=== PATIENT | male | born 1940 | race Caucasian/White ===

== ENCOUNTER 2017-08-15 09:03 | Inpatient (IN) ==
[2017-08-15] MEDS ORDERED: SODIUM CHLORIDE 0.9% 500 ML IV STA ×2 (09:41→09:43)
[2017-08-15] MEDS ORDERED: LEVOFLOXACIN INJ 500 MG in PREMIX 1 EACH IV STA (09:41)
[2017-08-15] MEDS ORDERED: methylPREDNISolone SOD SUC 125 MG/2 ML VIAL IV STA (09:41)
[2017-08-15] MEDS ORDERED: methylPREDNISolone SOD SUC 125 MG/2 ML VIAL ONE (09:50)
[2017-08-15] MEDS ORDERED: LEVOFLOXACIN INJ 100 ML IV ONE (09:50)
[2017-08-15 09:51] LABS: Basophils # 0.1 10*3/uL (0.0-0.2); Basophils % 0.4 % (0.0-0.8); Eosinophils % 0.1 % (0.00-10.9); Hemoglobin 14.8 GM/DL (14.0-18.0); Immature Granulocytes % 1.8 %; Immature Granulocytes Absolute 0.46 #; Lymphocytes # 1.8 10*3/uL (1.4-4.0); Lymphocytes % 7.1 % (21.2-54.2); Mean Corpuscular HGB Conc 33.6 GM/DL (32-36); Mean Corpuscular Hemoglobin 30 PG (27-34); Mean Corpuscular Volume 87.8 FL (87-102); Mean Platelet Volume 9.6 FL (9.6-12.0); Monocytes # 0.8 10*3/uL (0.11-0.8); Monocytes % 3.3 % (1.7-12.7); NRBC # 0.05 10*3/uL; Neutrophils # 22.1 10*3/uL (1.4-7.4); Neutrophils % 87.3 % (38.7-73.9); Platelet Count 322 T/CUMM (130-400); Red Blood Count 5.01 MC/CUMM (3.8-5.5); Red Cell Distribution Width 15.2 % (9.3-17.3); White Blood Count 25.3 T/CUMM (4-12)
[2017-08-15 09:56] LABS: PT Patient Result 10.8 SECS; Partial Thromboplastin Time 23.7 SECS (0-40)
[2017-08-15] MEDS ORDERED: ALBUTEROL 2.5 MG/3 ML NEB RESP TX SCH (10:00)
[2017-08-15 10:04] LABS: Albumin 2.9 G/DL (3.4-5.0); Bilirubin,Total 0.5 MG/DL (0.2-1.0); Calcium 9.7 MG/DL (8.5-10.1); Potassium 3.7 MMOL/L (3.5-5.1); Total Protein 5.8 G/DL (6.4-8.3); Troponin I Only 0.172 NG/ML (0.00-0.045)
[2017-08-15] MEDS ORDERED: FUROSEMIDE 40 MG/4 ML VIAL IV STA (10:23)
[2017-08-15] MEDS ORDERED: NOREPINEPHRINE 4 MG/4 ML VIAL IV ONE (10:33)
[2017-08-15 10:40] LABS: ABG HCO3 27.3 MMOL/L (20-26); ABG PCO2 40.1 MM HG (35-48); ABG PH 7.454 (7.35-7.45); ABG TCO2 24.3 MMOL/L (23-27)
[2017-08-15 10:43] LABS: ABG PO2 38.8 MM HG (80-95)
[2017-08-15] MEDS: NOREPINEPHRINE 8 MG in SODIUM CHLORIDE 0.9% 242 ML IV SCH (10:45)
[2017-08-15 10:52] LABS: Apearance,Urine CLOUDY (Clear); Bacteria,Urine Many /HPF (Few); Bilirubin,Urine Negative (Negative); Blood, Urine Moderate mg/dL (Negative); Glucose,Urine (UA) >=500 mg/dL (Negative); Ketones,Urine Negative (Negative); Mucus,Urine Occasional /LPF (Occasional); Nitrite,Urine Negative (Negative); Protein,Urine Negative; RBC,Urine 6 /HPF (0-4); Urine Color Yellow (Yellow); Urine Specific Gravity 1.017 (1.001-1.035); WBC,Urine 66 /HPF (0-6)
[2017-08-15] MEDS ORDERED: FUROSEMIDE 40 MG/4 ML VIAL ONE (11:14)
[2017-08-15 11:19] LABS: Band Neutrophils 9 % (0-10); Giant Platelets Few; Hypochromasia 1+; Lymphocytes 6 % (20-55); Microcytosis Slight; Platelet Estimate Adequate; Segmented Neutrophils 83 % (50-85); Total Cells Counted 100
[2017-08-15] MEDS ORDERED: SODIUM CHLORIDE 0.9% 1,000 ML IV ONE (11:34)
[2017-08-15] MEDS ORDERED: SODIUM CHLORIDE 0.9% 1,000 ML IV SCH (12:30)
[2017-08-15] MEDS ORDERED: ONDANSETRON 4 MG/2 ML VIAL IV PRN (14:29)
[2017-08-15] MEDS ORDERED: ACETAMINOPHEN 325 MG TABLET PO PRN (14:29)
[2017-08-15] MEDS ORDERED: VANCOMYCIN INJ 1,250 MG in SODIUM CHLORIDE 0.45% 250 ML IV SCH (15:30)
[2017-08-15] MEDS: cefTRIAXone 1,000 MG in SYRINGE 1 EACH IV SCH (15:30)
[2017-08-15] MEDS: methylPREDNISolone SOD SUC 40 MG/1 ML VIAL IV SCH ×2 (15:31→22:33)
[2017-08-15] MEDS: ALBUTEROL/IPRATROPIUM 3 ML NEB RESP TX SCH ×2 (15:59→20:14)
[2017-08-16] MEDS ORDERED: MORPHINE 2 MG/1 ML SYRINGE ONE (00:37)
[2017-08-16] MEDS: MORPHINE 2 MG/1 ML SYRINGE IV PRN ×2 (00:43→11:15)
[2017-08-16] MEDS: ALBUTEROL/IPRATROPIUM 3 ML NEB RESP TX SCH ×4 (01:06→19:54)
[2017-08-16 05:38] LABS: Basophils % 0.1 % (0.0-0.8); Hematocrit 36.4 VOL% (42.0-52.0); Hemoglobin 12.2 GM/DL (14.0-18.0); Immature Granulocytes % 0.7 %; Immature Granulocytes Absolute 0.14 #; Lymphocytes # 0.4 10*3/uL (1.4-4.0); Lymphocytes % 1.8 % (21.2-54.2); Mean Corpuscular HGB Conc 33.5 GM/DL (32-36); Mean Corpuscular Hemoglobin 29 PG (27-34); Mean Corpuscular Volume 86.9 FL (87-102); Mean Platelet Volume 9.6 FL (9.6-12.0); Monocytes # 0.4 10*3/uL (0.11-0.8); Neutrophils # 19.1 10*3/uL (1.4-7.4); Neutrophils % 95.4 % (38.7-73.9); Platelet Count 174 T/CUMM (130-400); Red Blood Count 4.19 MC/CUMM (3.8-5.5); Red Cell Distribution Width 15.2 % (9.3-17.3)
[2017-08-16 06:15] LABS: Calcium 9.2 MG/DL (8.5-10.1); Osmolality,Calculated 294.8 MOS/KG (273-304); Potassium 4.8 MMOL/L (3.5-5.1)
[2017-08-16] MEDS: methylPREDNISolone SOD SUC 40 MG/1 ML VIAL IV SCH ×3 (06:32→23:41)
[2017-08-16] MEDS ORDERED: GLUCAGON 1 MG VIAL IM PRN (07:11)
[2017-08-16] MEDS ORDERED: DEXTROSE 50% 25 GM/50 ML VIAL IV PRN (07:11)
[2017-08-16 08:28] LABS: Band Neutrophils 1 % (0-10); Hypochromasia 2+; Lymphocytes 4 % (20-55); Microcytosis 1+; Platelet Estimate Adequate; Segmented Neutrophils 94 % (50-85); Total Cells Counted 100
[2017-08-16] MEDS: FUROSEMIDE 40 MG/4 ML VIAL IV SCH ×2 (08:30→16:22)
[2017-08-16] MEDS ORDERED: FUROSEMIDE 40 MG/4 ML VIAL IV SCH (09:00)
[2017-08-16] MEDS: NOREPINEPHRINE 8 MG in SODIUM CHLORIDE 0.9% 242 ML IV SCH (10:22)
[2017-08-16] MEDS: cefTRIAXone 1,000 MG in SYRINGE 1 EACH IV SCH (12:15)
[2017-08-16] MEDS: INSULIN REGULAR 100 UNIT/ML SUBCUT SCH ×3 (12:35→23:54)
[2017-08-16] MEDS: CLINDAMYCIN INJ 600 MG in PREMIX 1 EACH IV SCH ×2 (16:20→23:40)
[2017-08-16] MEDS: PIPERACILLIN/TAZOBACTAM 3,375 MG in SODIUM CHLORIDE 0.9% 100 ML IV SCH (16:50)
[2017-08-16] MEDS: DILTIAZEM INJ 100 MG in SODIUM CHLORIDE 0.9% 100 ML IV SCH (21:41)
[2017-08-17] MEDS: ALBUTEROL/IPRATROPIUM 3 ML NEB RESP TX SCH ×4 (00:49→19:51)
[2017-08-17] MEDS: PIPERACILLIN/TAZOBACTAM 3,375 MG in SODIUM CHLORIDE 0.9% 100 ML IV SCH ×4 (01:04→23:49)
[2017-08-17 06:19] LABS: Calcium 7.9 MG/DL (8.5-10.1); Magnesium 2.3 MG/DL (1.8-2.4); Osmolality,Calculated 304.1 MOS/KG (273-304); Potassium 3.6 MMOL/L (3.5-5.1)
[2017-08-17] MEDS: INSULIN REGULAR 100 UNIT/ML SUBCUT SCH ×4 (06:30→23:57)
[2017-08-17] MEDS: CLINDAMYCIN INJ 600 MG in PREMIX 1 EACH IV SCH ×3 (06:31→23:03)
[2017-08-17] MEDS: methylPREDNISolone SOD SUC 40 MG/1 ML VIAL IV SCH ×3 (06:31→23:03)
[2017-08-17] MEDS: FUROSEMIDE 40 MG/4 ML VIAL IV SCH ×2 (08:19→16:22)
[2017-08-17] MEDS: ALBUTEROL 2.5 MG/3 ML NEB RESP TX PRN ×2 (11:22→16:11)
[2017-08-17] MEDS: INSULIN GLARGINE 100 UNIT/ML SUBCUT SCH (16:49)
[2017-08-17] MEDS: NOREPINEPHRINE 8 MG in SODIUM CHLORIDE 0.9% 242 ML IV SCH (19:45)
[2017-08-17] MEDS: DILTIAZEM INJ 100 MG in SODIUM CHLORIDE 0.9% 100 ML IV SCH (22:37)
[2017-08-18] MEDS: ALBUTEROL/IPRATROPIUM 3 ML NEB RESP TX SCH ×4 (01:31→19:57)
[2017-08-18] MEDS: INSULIN REGULAR 100 UNIT/ML SUBCUT SCH ×3 (06:48→17:12)
[2017-08-18] MEDS: methylPREDNISolone SOD SUC 40 MG/1 ML VIAL IV SCH ×2 (06:48→14:38)
[2017-08-18] MEDS: CLINDAMYCIN INJ 600 MG in PREMIX 1 EACH IV SCH ×2 (06:48→14:41)
[2017-08-18] MEDS: FUROSEMIDE 40 MG/4 ML VIAL IV SCH ×2 (08:40→15:15)
[2017-08-18] MEDS: PIPERACILLIN/TAZOBACTAM 3,375 MG in SODIUM CHLORIDE 0.9% 100 ML IV SCH ×2 (08:40→15:22)
[2017-08-18] MEDS: INSULIN GLARGINE 100 UNIT/ML SUBCUT SCH (08:40)
[2017-08-18] MEDS: DILTIAZEM INJ 100 MG in SODIUM CHLORIDE 0.9% 100 ML IV SCH ×3 (08:41→21:32)
[2017-08-18] MEDS: NOREPINEPHRINE 8 MG in SODIUM CHLORIDE 0.9% 242 ML IV SCH (09:41)
[2017-08-19] MEDS: methylPREDNISolone SOD SUC 40 MG/1 ML VIAL IV SCH ×4 (00:01→23:19)
[2017-08-19] MEDS: CLINDAMYCIN INJ 600 MG in PREMIX 1 EACH IV SCH ×4 (00:02→23:19)
[2017-08-19] MEDS: PIPERACILLIN/TAZOBACTAM 3,375 MG in SODIUM CHLORIDE 0.9% 100 ML IV SCH ×4 (00:09→23:52)
[2017-08-19] MEDS: INSULIN REGULAR 100 UNIT/ML SUBCUT SCH ×4 (00:36→17:53)
[2017-08-19] MEDS: ALBUTEROL/IPRATROPIUM 3 ML NEB RESP TX SCH ×4 (00:44→20:27)
[2017-08-19] MEDS: DILTIAZEM INJ 100 MG in SODIUM CHLORIDE 0.9% 100 ML IV SCH ×2 (03:52→21:12)
[2017-08-19] MEDS: INSULIN GLARGINE 100 UNIT/ML SUBCUT SCH (08:43)
[2017-08-19] MEDS: FUROSEMIDE 40 MG/4 ML VIAL IV SCH ×2 (08:43→16:54)
[2017-08-19] MEDS: NOREPINEPHRINE 8 MG in SODIUM CHLORIDE 0.9% 242 ML IV SCH (10:14)
[2017-08-19] MEDS: CHOLECALCIFEROL 1,000 UNIT TABLET PO SCH (12:09)
[2017-08-19] MEDS: DIGOXIN 0.125 MG TABLET PO SCH (12:10)
[2017-08-19] MEDS: APIXABAN 5 MG TABLET PO SCH ×2 (12:10→20:50)
[2017-08-19] MEDS: THEOPHYLLINE ER (24 HR) 300 MG CAPSULE PO SCH (12:10)
[2017-08-19] MEDS: PANTOPRAZOLE 40 MG TABLET PO SCH (12:10)
[2017-08-19] MEDS: FINASTERIDE 5 MG TABLET PO SCH (12:11)
[2017-08-19] MEDS: TAMSULOSIN 0.4 MG CAPSULE PO SCH (20:51)
[2017-08-19] MEDS: clonazePAM 0.5 MG TABLET PO SCH (20:51)
[2017-08-20] MEDS: INSULIN REGULAR 100 UNIT/ML SUBCUT SCH ×4 (00:07→18:33)
[2017-08-20] MEDS: ALBUTEROL/IPRATROPIUM 3 ML NEB RESP TX SCH ×4 (01:18→20:37)
[2017-08-20 04:13] LABS: Basophils % 0.2 % (0.0-0.8); Immature Granulocytes % 0.8 %; Immature Granulocytes Absolute 0.07 #; Lymphocytes # 0.3 10*3/uL (1.4-4.0); Lymphocytes % 2.8 % (21.2-54.2); Mean Corpuscular HGB Conc 31.6 GM/DL (32-36); Mean Corpuscular Hemoglobin 29 PG (27-34); Mean Corpuscular Volume 92.7 FL (87-102); Mean Platelet Volume 9.9 FL (9.6-12.0); Monocytes # 0.5 10*3/uL (0.11-0.8); Monocytes % 4.9 % (1.7-12.7); Neutrophils # 8.4 10*3/uL (1.4-7.4); Neutrophils % 91.3 % (38.7-73.9); Platelet Count 148 T/CUMM (130-400); Red Cell Distribution Width 14.6 % (9.3-17.3); White Blood Count 9.2 T/CUMM (4-12)
[2017-08-20 04:46] LABS: Calcium 8.5 MG/DL (8.5-10.1); Magnesium 2.9 MG/DL (1.8-2.4); Osmolality,Calculated 318.7 MOS/KG (273-304); Potassium 3.1 MMOL/L (3.5-5.1)
[2017-08-20 04:51] LABS: Lymphocytes 1 % (20-55); Segmented Neutrophils 96 % (50-85); Total Cells Counted 100
[2017-08-20 04:52] LABS: Platelet Estimate Adequate; Polychromasia Slight
[2017-08-20] MEDS: methylPREDNISolone SOD SUC 40 MG/1 ML VIAL IV SCH ×3 (07:35→23:02)
[2017-08-20] MEDS: CLINDAMYCIN INJ 600 MG in PREMIX 1 EACH IV SCH ×3 (07:35→23:02)
[2017-08-20] MEDS: FUROSEMIDE 40 MG/4 ML VIAL IV SCH (09:32)
[2017-08-20] MEDS: PIPERACILLIN/TAZOBACTAM 3,375 MG in SODIUM CHLORIDE 0.9% 100 ML IV SCH ×3 (09:36→23:31)
[2017-08-20] MEDS: INSULIN GLARGINE 100 UNIT/ML SUBCUT SCH (09:36)
[2017-08-20] MEDS: APIXABAN 5 MG TABLET PO SCH ×2 (09:37→20:37)
[2017-08-20] MEDS: DIGOXIN 0.125 MG TABLET PO SCH (09:37)
[2017-08-20] MEDS: THEOPHYLLINE ER (24 HR) 300 MG CAPSULE PO SCH (09:37)
[2017-08-20] MEDS: CHOLECALCIFEROL 1,000 UNIT TABLET PO SCH (09:37)
[2017-08-20] MEDS: PANTOPRAZOLE 40 MG TABLET PO SCH (09:37)
[2017-08-20] MEDS: FINASTERIDE 5 MG TABLET PO SCH (09:37)
[2017-08-20] MEDS: NOREPINEPHRINE 8 MG in SODIUM CHLORIDE 0.9% 242 ML IV SCH (09:38)
[2017-08-20] MEDS: TAMSULOSIN 0.4 MG CAPSULE PO SCH ×2 (09:38→20:37)
[2017-08-20] MEDS: sitaGLIPtin 100 MG TABLET PO SCH (09:38)
[2017-08-20] MEDS: clonazePAM 0.5 MG TABLET PO SCH ×2 (09:38→20:37)
[2017-08-20] MEDS: POTASSIUM CHLORIDE 20 MEQ TABLET PO SCH ×3 (15:54→23:02)
[2017-08-20] MEDS: DILTIAZEM INJ 100 MG in SODIUM CHLORIDE 0.9% 100 ML IV SCH ×2 (15:55→20:39)
[2017-08-21] MEDS: ALBUTEROL/IPRATROPIUM 3 ML NEB RESP TX SCH ×5 (00:24→23:55)
[2017-08-21] MEDS: INSULIN REGULAR 100 UNIT/ML SUBCUT SCH ×4 (01:21→17:47)
[2017-08-21] MEDS: POTASSIUM CHLORIDE 20 MEQ TABLET PO SCH (03:11)
[2017-08-21 04:35] LABS: Calcium 8.5 MG/DL (8.5-10.1); Magnesium 2.8 MG/DL (1.8-2.4); Osmolality,Calculated 319.3 MOS/KG (273-304); Potassium 3.7 MMOL/L (3.5-5.1)
[2017-08-21 04:50] LABS: Troponin I Only 0.107 NG/ML (0.00-0.045)
[2017-08-21] MEDS: DILTIAZEM INJ 100 MG in SODIUM CHLORIDE 0.9% 100 ML IV SCH ×3 (05:21→22:56)
[2017-08-21] MEDS: methylPREDNISolone SOD SUC 40 MG/1 ML VIAL IV SCH ×3 (07:31→23:56)
[2017-08-21] MEDS: CLINDAMYCIN INJ 600 MG in PREMIX 1 EACH IV SCH ×3 (07:34→23:52)
[2017-08-21] MEDS: PANTOPRAZOLE 40 MG TABLET PO SCH (08:52)
[2017-08-21] MEDS: sitaGLIPtin 100 MG TABLET PO SCH (08:52)
[2017-08-21] MEDS: CHOLECALCIFEROL 1,000 UNIT TABLET PO SCH (08:52)
[2017-08-21] MEDS: DIGOXIN 0.125 MG TABLET PO SCH (08:52)
[2017-08-21] MEDS: clonazePAM 0.5 MG TABLET PO SCH ×2 (08:52→21:19)
[2017-08-21] MEDS: THEOPHYLLINE ER (24 HR) 300 MG CAPSULE PO SCH (08:52)
[2017-08-21] MEDS: TAMSULOSIN 0.4 MG CAPSULE PO SCH ×2 (08:52→21:19)
[2017-08-21] MEDS: APIXABAN 5 MG TABLET PO SCH ×2 (08:53→21:19)
[2017-08-21] MEDS: FINASTERIDE 5 MG TABLET PO SCH (08:53)
[2017-08-21] MEDS: INSULIN GLARGINE 100 UNIT/ML SUBCUT SCH (08:53)
[2017-08-21] MEDS: FUROSEMIDE 40 MG/4 ML VIAL IV SCH (08:54)
[2017-08-21] MEDS: PIPERACILLIN/TAZOBACTAM 3,375 MG in SODIUM CHLORIDE 0.9% 100 ML IV SCH ×2 (09:15→15:47)
[2017-08-22] MEDS: PIPERACILLIN/TAZOBACTAM 3,375 MG in SODIUM CHLORIDE 0.9% 100 ML IV SCH ×3 (00:50→21:50)
[2017-08-22] MEDS: INSULIN REGULAR 100 UNIT/ML SUBCUT SCH ×4 (00:51→17:57)
[2017-08-22] MEDS: methylPREDNISolone SOD SUC 40 MG/1 ML VIAL IV SCH (07:32)
[2017-08-22] MEDS: CLINDAMYCIN INJ 600 MG in PREMIX 1 EACH IV SCH (07:36)
[2017-08-22] MEDS: ALBUTEROL/IPRATROPIUM 3 ML NEB RESP TX SCH ×3 (07:44→21:10)
[2017-08-22] MEDS: PANTOPRAZOLE 40 MG TABLET PO SCH (08:05)
[2017-08-22] MEDS: TAMSULOSIN 0.4 MG CAPSULE PO SCH ×2 (08:05→21:50)
[2017-08-22] MEDS: clonazePAM 0.5 MG TABLET PO SCH ×2 (08:05→21:50)
[2017-08-22] MEDS: THEOPHYLLINE ER (24 HR) 300 MG CAPSULE PO SCH (08:05)
[2017-08-22] MEDS: sitaGLIPtin 100 MG TABLET PO SCH (08:05)
[2017-08-22] MEDS: CHOLECALCIFEROL 1,000 UNIT TABLET PO SCH (08:05)
[2017-08-22] MEDS: DIGOXIN 0.125 MG TABLET PO SCH (08:05)
[2017-08-22] MEDS: APIXABAN 5 MG TABLET PO SCH ×2 (08:05→21:50)
[2017-08-22] MEDS: FINASTERIDE 5 MG TABLET PO SCH (08:05)
[2017-08-22] MEDS: FUROSEMIDE 40 MG/4 ML VIAL IV SCH (08:06)
[2017-08-22 09:27] LABS: Apearance,Urine CLEAR (Clear); Bilirubin,Urine Negative (Negative); Blood, Urine Negative (Negative); Glucose,Urine (UA) 150 mg/dL (Negative); Ketones,Urine Negative (Negative); Nitrite,Urine Negative (Negative); Protein,Urine Negative; RBC,Urine 1 /HPF (0-4); Urine Color Colorless (Yellow); Urine Specific Gravity 1.005 (1.001-1.035); Urine Urobilinogen < 2.0 EU/DL (0.2-1.0); WBC,Urine 1 /HPF (0-6)
[2017-08-22] MEDS: INSULIN GLARGINE 100 UNIT/ML SUBCUT SCH (09:46)
[2017-08-22] MEDS: ZINC OXIDE PASTE 113 GM TUBE TOP SCH ×2 (12:29→21:51)
[2017-08-22] MEDS: DILTIAZEM INJ 100 MG in SODIUM CHLORIDE 0.9% 100 ML IV SCH (21:51)
[2017-08-23] MEDS: ALBUTEROL/IPRATROPIUM 3 ML NEB RESP TX SCH ×3 (00:40→13:30)
[2017-08-23] MEDS: INSULIN REGULAR 100 UNIT/ML SUBCUT SCH ×3 (02:08→12:59)
[2017-08-23] MEDS: NOREPINEPHRINE 8 MG in SODIUM CHLORIDE 0.9% 242 ML IV SCH (02:10)
[2017-08-23 05:39] LABS: Basophils % 0.2 % (0.0-0.8); Hematocrit 31.9 VOL% (42.0-52.0); Hemoglobin 10.3 GM/DL (14.0-18.0); Immature Granulocytes % 6.4 %; Immature Granulocytes Absolute 0.89 #; Lymphocytes # 0.6 10*3/uL (1.4-4.0); Mean Corpuscular HGB Conc 32.3 GM/DL (32-36); Mean Corpuscular Hemoglobin 29 PG (27-34); Mean Corpuscular Volume 89.6 FL (87-102); Mean Platelet Volume 10.5 FL (9.6-12.0); Monocytes # 0.4 10*3/uL (0.11-0.8); Monocytes % 2.9 % (1.7-12.7); NRBC # 0.08 10*3/uL; Neutrophils % 86.5 % (38.7-73.9); Platelet Count 113 T/CUMM (130-400); Red Blood Count 3.56 MC/CUMM (3.8-5.5); Red Cell Distribution Width 14.3 % (9.3-17.3); White Blood Count 13.9 T/CUMM (4-12)
[2017-08-23 06:34] LABS: Calcium 8.4 MG/DL (8.5-10.1); Magnesium 2.2 MG/DL (1.8-2.4); Osmolality,Calculated 293.7 MOS/KG (273-304)
[2017-08-23 06:56] LABS: Band Neutrophils 5 % (0-10); Hypochromasia 1+; Lymphocytes 4 % (20-55); Platelet Estimate Decreased; Segmented Neutrophils 89 % (50-85); Total Cells Counted 100
[2017-08-23] MEDS ORDERED: methylPREDNISolone SOD SUC 40 MG/1 ML VIAL IV SCH (09:00)
[2017-08-23] MEDS: INSULIN GLARGINE 100 UNIT/ML SUBCUT SCH (09:40)
[2017-08-23] MEDS: FUROSEMIDE 40 MG/4 ML VIAL IV SCH (09:40)
[2017-08-23] MEDS: CHOLECALCIFEROL 1,000 UNIT TABLET PO SCH (09:41)
[2017-08-23] MEDS: THEOPHYLLINE ER (24 HR) 300 MG CAPSULE PO SCH (09:41)
[2017-08-23] MEDS: sitaGLIPtin 100 MG TABLET PO SCH (09:41)
[2017-08-23] MEDS: TAMSULOSIN 0.4 MG CAPSULE PO SCH (09:41)
[2017-08-23] MEDS: APIXABAN 5 MG TABLET PO SCH (09:41)
[2017-08-23] MEDS: DIGOXIN 0.125 MG TABLET PO SCH (09:41)
[2017-08-23] MEDS: clonazePAM 0.5 MG TABLET PO SCH (09:41)
[2017-08-23] MEDS: PANTOPRAZOLE 40 MG TABLET PO SCH (09:41)
[2017-08-23] MEDS: FINASTERIDE 5 MG TABLET PO SCH (09:49)
[2017-08-23] MEDS: PIPERACILLIN/TAZOBACTAM 3,375 MG in SODIUM CHLORIDE 0.9% 100 ML IV SCH (09:50)
[2017-08-23] MEDS ORDERED: AMOXICILLIN/CLAV 500 MG TABLET PO SCH (10:30)
[2017-08-23] MEDS ORDERED: DILTIAZEM 60 MG TABLET PO SCH (10:30)
[2017-08-23] MEDS ORDERED: TUBERCULIN SKIN TEST 0.1 ML SYRINGE INTRADERM ONE (11:03)
[2017-08-23] MEDS: ZINC OXIDE PASTE 113 GM TUBE TOP SCH (11:24)
[2017-08-23 11:48] VITALS: BP 118/74
[2017-08-24] MEDS ORDERED: FUROSEMIDE 20 MG TABLET PO SCH (09:00)
[2017-08-24] MEDS ORDERED: predniSONE 10 MG TABLET PO SCH (09:00)
== END 2017-08-23 14:10 | disposition home or self-care (01) | DRG 871 ==
LOC: N.ED 09:03 → SUATTDRO 11:32 → N.EDINP 11:32 → N.ICU 14:27 → N.TELEN 08-18 10:25
PROVIDERS: ADMIT Hospitalist; ATTEND Internal Medicine